=== PATIENT | female | born 1995 | race Caucasian/White ===

== ENCOUNTER 2017-11-16 10:50 | Emergency (ER) | payer OTHER ==
[~2017-11-16] VITALS: Ht 154.9 cm; Wt 58.5 kg
[2017-11-16] MEDS ORDERED: HYDROCODONE/APAP 5-325MG TABLET ONE (10:57)
[2017-11-16] MEDS ORDERED: KETOROLAC TROMETHAMINE 30 MG INJ ONE (10:57)
[2017-11-16] MEDS ORDERED: HYDROCODONE/APAP 5-325MG TABLET PO ONE (11:00)
[2017-11-16] MEDS ORDERED: KETOROLAC TROMETHAMINE 30 MG INJ IM ONE (11:00)
[2017-11-16] MEDS ORDERED: [UNRECOGNIZED DRUG - REMARK] (11:06)
--- NOTE | 2017-11-16 12:08 | NUR ---
PT ABLE TO WALK AROUND WITH STEADY GAIT. PT ACCOMPANIED BY .
[2017-11-16 12:09] VITALS: BP 109/61
== END 2017-11-16 12:10 | disposition home or self-care (01) ==
LOC: ER 10:50
DX: S39.012A Strain of muscle, fascia and tendon of lower back, initial encounter (principal); X58.XXXA Exposure to other specified factors, initial encounter; Y93.89 Activity, other specified; Y92.89 Other specified places as the place of occurrence of the external cause; Y99.8 Other external cause status
CPT/HCPCS: 96372; 99283; A4663; J1885